=== PATIENT | male | born 1940 | race Caucasian/White ===

== ENCOUNTER → 2024-01-19 12:36 | Outpatient (REF) | payer MEDICARE, OTHER, SELFPAY | LOC: RCS 12:36 | PROVIDERS: ATTENDING PHYSICIAN Internal Medicine; FAMILY PHYSICIAN Internal Medicine | DX: I50.32 Chronic diastolic (congestive) heart failure (principal); I25.10 Atherosclerotic heart disease of native coronary artery without angina pectoris; Z95.2 Presence of prosthetic heart valve | CPT/HCPCS: 93306 ==

== ENCOUNTER 2024-10-06 15:01 | Emergency (ER) | payer MEDICARE, OTHER, SELFPAY ==
[2024-10-06 15:10] VITALS: BP 158/88
[2024-10-06 15:44] LABS: Hematocrit 51.6 % (39.0-52.0); Hemoglobin 17.9 g/dL (13.0-18.0); Mean Corp Hgb Conc. 34.7 g/dL (33.0-37.0); Mean Corpuscular Volume 88.2 fL (80.0-94.0); Nucleated Red Blood Cells % 0 % (-); Platelet Count 103 10^3/uL (130-400); Red Cell Dist. Width 14.8 % (11.5-14.5)
[2024-10-06 15:55] LABS: ALT (SGPT) 32 U/L (0-50); AST (SGOT) 38 U/L (17-59); Albumin 4.4 g/dl (3.5-5.0); Alkaline Phosphatase 72 U/L (38-126); Blood Urea Nitrogen 26 mg/dl (9-20); Calcium 10.1 mg/dl (8.4-10.2); Carbon Dioxide 30 mmol/L (22-30); Chloride 99 mmol/L (98-107); Glucose 167 mg/dl (70-99); Potassium 3.8 mmol/L (3.5-5.1); Sodium 135 mmol/L (135-145); Total Protein 7.1 g/dl (6.3-8.2); eGFR 49.87
[2024-10-06 17:29] VITALS: BMI 38.5
--- NOTE | 2024-10-06 17:59 | ED.GENMED ---
History of Present Illness
<Cleopatra Jain PA-C - Last Filed: 10/07/24 03:54>
General
Chief Complaint: Weakness
Source: patient
Exam Limitations: none
Time Seen by Provider: 10/06/24 17:56
Nursing documentation reviewed up to this point in time: agreed with
History of Present Illness
History of Present Illness:
This is a 83-year-old male with past medical history of aortic stenosis, hypertension, hyperlipidemia on aspirin, diabetes, presents emergency department today with concerns of neck pain and fatigue for the past 4 days. Patient reports over a's
ago, he was getting dressed in his bedroom when he lost his balance and fell backwards, hitting the back of his head. Patient reports that he got up okay at the time. He normally ambulates with a cane. Since then, he has been unable to walk
without feeling very weak and fatigued. He reports that he feels weak all over and that the weakness is not localized to 1 extremity in particular. Patient reports that when he fell, he not lose consciousness. He also reports that his neck pain
has been getting worse. He denies any numbness or tingling in his upper extremities, denies any trouble swallowing, denies any headaches or dizziness. He denies any lightheadedness. He denies any chest pain or shortness of breath. He had no
abdominal pain, back pain, nausea, vomiting, visual changes. He denies any pain in his lower extremities. He reports that he has been spending a lot of time sitting on the chair at home due to his walking difficulties. mentions that he has
had new episodes of urinary incontinence. Patient reports that because of his weakness, he is not able to get up fast enough to run to the bathroom. However, he denies any low back pain, new lower extremity paresthesias. Patient reports that he
has not taken anything for pain and is not requesting any medications for pain at this time.
Past History
<Cleopatra Jain PA-C - Last Filed: 10/07/24 03:54>
Past History
ED Past Medical History: HTN and NIDDM
ED Past Surgical History: None
Social History
Tobacco: Non-smoker
Alcohol: Daily (Vodka 1)
Personal:
Living: with family
Review of Systems
<Cleopatra Jain PA-C - Last Filed: 10/07/24 03:54>
Review of Systems
All Other Systems: ROS reviewed and negative except as documented in HPI and ROS
Phy Exam
<Cleopatra Jain PA-C - Last Filed: 10/07/24 03:54>
Physical Exam
Physical Exam:
General: Patient is well appearing and in no acute distress; non-toxic
Skin: Warm and dry, no rashes or lesions
Head: Normocephalic, atraumatic
Eyes: Sclera non-icteric. EOMs intact.
Cardiac: Regular rate and rhythm, no murmurs
Peripheral Vascular: No lower extremity swelling or edema
Pulm: Normal respiratory effort, no wheezes, rales, rhonchi
Abdomen: No abdominal tenderness to palpation. No signs of trauma.
Musculoskeletal: No tenderness palpation in the bilateral upper and lower extremities. Full range of motion the bilateral upper and lower extremities, 5 out of 5 strength.
Neuro: CN II-XII intact, no focal neurologic deficits. Sensation intact in upper extremities.
Psychiatric: Appropriate mood and affect.
Course
<Cleopatra Jain PA-C - Last Filed: 10/07/24 03:54>
Orders/Labs/Results
Orders:
Orders
10/06/24 15:15
Electrocardiogram (*1) Urgent
Reason for Study: Vertigo / Dizzy
CT Cervical Spine W/o Iv Contr Urgent
Comment:
Reason For Exam: fall
CT Head W/o Iv Contrast Urgent
Comment:
Reason For Exam: fall
10/06/24 15:16
EKG- Treatment ONCE
10/06/24 15:25
Complete Blood Count/With Diff Urgent
Comprehensive Metabolic Panel Urgent
10/06/24 18:02
Cervical Collar- Treatment ONCE
Collar Type: Hard Cervical Collar
10/06/24 19:40
Desmopressin [Ddavp] 40 mcg 0.9% Sodium Chloride 50 ml [Nss] 50 ml IV NOW
10/06/24 20:50
Acetaminophen [Tylenol] 650 mg PO NOW STA
10/06/24 20:56
COVID-19 Antigen Urgent
Source: Nasal Swab
Influenza A+B Rapid Molecular Urgent
ARI Source: Nasal Swab
Specimen Description:
Abnormal Lab Results
10/06/24
15:25
RDW 14.8 H %
(11.5-14.5)
Plt Count 103 L 10^3/uL
(130-400)
MPV 10.6 H fL
(7.4-10.4)
Absolute Lymphs (auto) 0.7 L 10^3/uL
(1.2-3.4)
Absolute Monos (auto) 0.7 H 10^3/uL
(0.1-0.6)
Lymphocytes % 13.4 L %
(20.5-51.1)
Monocytes % 13.0 H %
(1.7-9.3)
BUN 26 H mg/dl
(9-20)
Creatinine 1.4 H mg/dL
(0.7-1.3)
Glucose 167 H mg/dl
(70-99)
Total Bilirubin 1.8 H mg/dl
(0.2-1.3)
10/06/24 15:25
10/06/24 15:25
Vital Signs
Initial and Last Documented VS:
Initial Vital Signs
Temp Pulse Resp BP Pulse Ox
98.5 F 103 18 158/88 98
10/06/24 15:10 10/06/24 15:10 10/06/24 15:10 10/06/24 15:10 10/06/24 15:10
Last Documented Vital Signs
Temp Pulse Resp BP Pulse Ox
100.4 F H 99 18 149/71 97
10/06/24 20:49 10/06/24 20:00 10/06/24 21:00 10/06/24 21:00 10/06/24 21:00
<Davonte Crouch MD - Last Filed: 10/06/24 18:36>
Orders/Labs/Results
Orders:
Orders
10/06/24 15:15
Electrocardiogram (*1) Urgent
Reason for Study: Vertigo / Dizzy
CT Cervical Spine W/o Iv Contr Urgent
Comment:
Reason For Exam: fall
CT Head W/o Iv Contrast Urgent
Comment:
Reason For Exam: fall
10/06/24 15:16
EKG- Treatment ONCE
10/06/24 15:25
Complete Blood Count/With Diff Urgent
Comprehensive Metabolic Panel Urgent
10/06/24 18:02
Cervical Collar- Treatment ONCE
Collar Type: Hard Cervical Collar
10/06/24 19:40
Desmopressin [Ddavp] 40 mcg 0.9% Sodium Chloride 50 ml [Nss] 50 ml IV NOW
10/06/24 20:50
Acetaminophen [Tylenol] 650 mg PO NOW STA
10/06/24 20:56
COVID-19 Antigen Urgent
Source: Nasal Swab
Influenza A+B Rapid Molecular Urgent
ARI Source: Nasal Swab
Specimen Description:
Abnormal Lab Results
10/06/24
15:25
RDW 14.8 H %
(11.5-14.5)
Plt Count 103 L 10^3/uL
(130-400)
MPV 10.6 H fL
(7.4-10.4)
Absolute Lymphs (auto) 0.7 L 10^3/uL
(1.2-3.4)
Absolute Monos (auto) 0.7 H 10^3/uL
(0.1-0.6)
Lymphocytes % 13.4 L %
(20.5-51.1)
Monocytes % 13.0 H %
(1.7-9.3)
BUN 26 H mg/dl
(9-20)
Creatinine 1.4 H mg/dL
(0.7-1.3)
Glucose 167 H mg/dl
(70-99)
Total Bilirubin 1.8 H mg/dl
(0.2-1.3)
10/06/24 15:25
10/06/24 15:25
Vital Signs
Initial and Last Documented VS:
Initial Vital Signs
Temp Pulse Resp BP Pulse Ox
98.5 F 103 18 158/88 98
10/06/24 15:10 10/06/24 15:10 10/06/24 15:10 10/06/24 15:10 10/06/24 15:10
Last Documented Vital Signs
Temp Pulse Resp BP Pulse Ox
100.4 F H 99 18 149/71 97
10/06/24 20:49 10/06/24 20:00 10/06/24 21:00 10/06/24 21:00 10/06/24 21:00
Ber[place];Cleopatra Jain PA-C - Last Filed: 10/07/24 03:54>
MDM/Problems Addressed
Differential Diagnosis Includes:
ddx include tension headache, concussion, subdural hematoma, epidural hematoma, cervical fracture, cervical sprain
MDM/Problems Addressed:
This is a 83-year-old male with past medical history of aortic stenosis, hypertension, hyperlipidemia on aspirin, diabetes, presents emergency department today with concerns of neck pain and fatigue for the past 4 days. History and physical as
above. Head CT today shows thickening of the mid to posterior aspect of the falx thickening of the left tentorium new findings compared to the examination in October 2019. On cervical spine CAT scan, there is type II dens fracture likely old fracture
rather acute however acute fracture is difficult to completely exclude. On exam, he is neurologically intact. Cervical collar in place. Transfer to trauma center indicated. Patient is requesting to go to the [facility] as this is
where his previous cervical fracture was managed.
<Cleopatra Jain PA-C - Last Filed: 10/07/24 03:54>
*Pulse Oximetry
SaO2: 98
Oxygen Mode of Delivery: Room air
Patient hypoxic: no
*Critical Care Note
Total Time (30-74mins, 75-104mins- exclusive of procedures): Not Applicable
Data Reviewed
Review of Other/Old Records Reveals: Records (Reviewed discharge summary from 10/15/2021 patient seen for moderate to severe aortic stenosis and had an aortic valve replacement, follows with Dr. Huber)
Source: patient and records
<Cleopatra Jain PA-C - Last Filed: 10/07/24 03:54>
Update Note
Update Note:
6:30 PM�will attempt to call [facility] for transfer
7:11 PM�patient accepted to [facility] trauma for transfer. Dr. German recommending DDAVP in light of aspirin use ; patient does take aspirin did call trauma surgeon again he states that this is okay since it is a one-time dose. Unit
credit verification clerk aware, transport called, ETA pending
9 PM�update patient ETA pickup at 10 PM. I was notified by nursing staff that patient developed a fever 100.4. This may explain patient's weakness this past week. Will add on COVID and flu testing as well as urinalysis.
ED Attending Note
<Cleopatra Jain PA-C - Last Filed: 10/07/24 03:54>
-
Portions of this chart may have been created with voice recognition software.� Occasional wrong word or��sound alike� substitutions may have occurred due to the inherent limitations of voice recognition software.
<Davonte Crouch MD - Last Filed: 10/06/24 18:36>
ED Attending Note
Patient seen and examined by attending physician: Yes
I performed the substantive portion of visit, reviewed & personally made and approve the management plan that is documented in note by myself or JANUSZ.: Yes
ED Attending Note:
83-year-old male lost his balance falling 4 days ago. Hit his head. Complaining of some new neck pain. Mild headache. Has been generally weak since then. No focality to the weakness. No nausea or vomiting no chest pain abdominal pain no fever
chills or other complaints
TRAUMA EXAM:
VITAL SIGNS: Vital signs reviewed, cooperative
DISTRESS: No active disease
EYES: Pupils reactive, no orbital trauma
NOSE: No deformity or epistaxis
FACE AND SCALP: No scalp or facial trauma
NECK: Collar in place
RESPIRATORY: No distress, breath sounds normal, no tender chest wall
CARDIAC: No murmur, pulses equal and strong
ABDOMEN: Soft nontender bowel sounds normal
SKIN: Skin intact no bleeding, color normal
EXTREMITIES: Nontender
NEUROLOGICAL: Alert, oriented, no motor deficits. 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 Interosseous intact. Flexion extension of the wrist normal. Dorsi plantarflexion of the feet normal. Light touch intact.
PSYCH: Mood affect normal
Impression: Recent fall with neck pain. New versus old dens fracture. Also questionable small subdural. Warrants transfer to a trauma center although patient does have a remote history of a cervical fracture. Unsure of the age of this at this
time. Weakness is general in nature. Electrolytes are okay. White count is okay. Mild renal insufficiency
Discharge Plan
Departure
Patient Disposition: Acute Care Hospital
Date of Disposition: 10/06/24
Time of Disposition: 19:24
Discharge Problem:
Acute subdural hematoma, Fall, Neck pain
Prescriptions:
No Action
tamsulosin 0.4 MG capsule
0.4 mg PO DAILY
atorvastatin 40 MG tablet
40 mg PO DAILY
losartan [Cozaar] 100 MG tablet
25 mg PO DAILY
aspirin 81 MG tablet,chewable
81 mg PO DAILY Qty: 30 0RF
furosemide 40 MG tablet
40 mg PO DAILY
acetaminophen [Tylenol Extra Strength] 500 MG tablet
500 mg PO Q4HPRN PRN (Reason: pain)
[place] 3-6-9 1,200 MG capsule
1,200 mg PO DAILY
pantoprazole 40 MG tablet,delayed release (DR/EC)
40 mg PO DAILY
metformin 500 mg Tablet
500 mg PO BID@0800,1700 Qty: 60 0RF
Rx Instructions:
To start Monday10/16/21
Jardiance 10 mg tablet
25 mg PO DAILY
hydrochlorothiazide 12.5 mg Capsule
12.5 mg PO .EVERY OTHER DAY
potassium chloride 20 mEq Tablet Extended Release
20 meq PO DAILY
Referrals:
Evan Avitia MD [Family Provider, Physical Medicine and Rehab]
Hospital Transfer
Other hospital: [facility]
I certify that the patient requires transfer: Yes
Discussed case with accepting physician: Dr. German
Reason for transfer: higher level of care
Interventions
Interventions:
*Risk Screen - Suicide Last Done: 10/06/24 15:10
*General Assessment Last Done: 10/06/24 15:10
*Neglect/Abuse Screening Last Done: 10/06/24 17:29
*ED- Fall Risk Assessment Last Done: 10/06/24 17:29
*ED COVID-19 Vaccine History Last Done: 10/06/24 15:10
*Nursing Disposition Last Done: 10/06/24 21:26
ED- Cardiac Assessment Last Done: 10/06/24 19:10
ED- Neurological Assessment Last Done: 10/06/24 19:10
ED- Pulmonary Assessment Last Done: 10/06/24 19:10
Discharge Date and Time
Discharge Date/Time: 10/06/24 21:27
Print Language: COLOMBIAN
[2024-10-06 18:14] VITALS: BP 160/68
[2024-10-06 19:00] VITALS: BP 148/83
[2024-10-06 20:00] VITALS: BP 145/84
[2024-10-06] MEDS: DDAVP 60 MCG IV (20:00)
[2024-10-06] MEDS: TYLENOL 650 MG PO (20:59)
[2024-10-06 21:00] VITALS: BP 149/71
[2024-10-06 21:15] LABS: COVID-19 Antigen Negative (Negative)
== END 2024-10-06 21:27 | disposition short-term general hospital (02) ==
LOC: EMR 15:01
PROVIDERS: Emergency Medicine; Physician Assistant; EMERGENCY PHYSICIAN Emergency Medicine; FAMILY PHYSICIAN Internal Medicine
DX: S06.5X0A Traumatic subdural hemorrhage without loss of consciousness, initial encounter (principal); M54.2 Cervicalgia; R53.83 Other fatigue; R53.1 Weakness; R50.9 Fever, unspecified; R26.2 Difficulty in walking, not elsewhere classified; S12.110A Anterior displaced Type II dens fracture, initial encounter for closed fracture; R32 Unspecified urinary incontinence; W18.39XA Other fall on same level, initial encounter; Y93.89 Activity, other specified; Z11.52 Encounter for screening for COVID-19; I35.0 Nonrheumatic aortic (valve) stenosis; I10 Essential (primary) hypertension; E78.5 Hyperlipidemia, unspecified; E11.40 Type 2 diabetes mellitus with diabetic neuropathy, unspecified; K57.90 Diverticulosis of intestine, part unspecified, without perforation or abscess without bleeding; G47.30 Sleep apnea, unspecified; M19.90 Unspecified osteoarthritis, unspecified site; N40.1 Benign prostatic hyperplasia with lower urinary tract symptoms; R39.15 Urgency of urination; M10.9 Gout, unspecified; E83.119 Hemochromatosis, unspecified; Z95.2 Presence of prosthetic heart valve; Z87.891 Personal history of nicotine dependence; Z79.82 Long term (current) use of aspirin; Z79.84 Long term (current) use of oral hypoglycemic drugs; Z91.048 Other nonmedicinal substance allergy status; Z98.1 Arthrodesis status
CPT/HCPCS: 99285; 96374; 70450; 72125; 80053; 85025; 87502; 87811; 93005; J2597

== ENCOUNTER → 2025-01-31 09:11 | Outpatient (REF) | payer MEDICARE, OTHER, SELFPAY | LOC: HWRCS 09:11 | PROVIDERS: ATTENDING PHYSICIAN Internal Medicine; FAMILY PHYSICIAN Internal Medicine | DX: I50.32 Chronic diastolic (congestive) heart failure (principal); I25.10 Atherosclerotic heart disease of native coronary artery without angina pectoris; I34.0 Nonrheumatic mitral (valve) insufficiency; Z95.2 Presence of prosthetic heart valve | CPT/HCPCS: 93306 ==